=== PATIENT | male | born 1990 | race Caucasian/White ===

== ENCOUNTER 2017-03-01 13:03 | Emergency (ER) | payer BC, MEDICAID ==
[~2017-03-01] VITALS: Wt 78.0 kg
--- NOTE | 2017-03-01 16:19 | RADRPT ---
PROCEDURE: Left knee series. CLINICAL INDICATION: Left knee pain after trauma TECHNIQUE: Three views of the left knee. COMPARISON: None available FINDINGS: There is normal mineralization and alignment of the left knee. No acute fracture or dislocation is seen. There is a well corticated osseous fragment adjacent to the lateral tibial plateau likely rel ated to prior lateral collateral ligament injury. There is mild medial and lateral joint space narr owing. Tricompartmental osteophytes are present. There is a small suprapatellar joint effusion.. T he soft tissues are within normal limits. IMPRESSION: 1. No evidence of acute fracture or dislocation. 2. 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 Bi mmend correlation with prior injury. A small corticated osseous fragment adjacent to the lateral ti bial plateau suggestive of prior lateral collateral ligament injury or meniscal injury. 3. Small joint effusion. RPTAT: KK .Pranav Galvan MD, Date Time Electronically viewed and signed by .Pranav Galvan MD, MD on 03/01/2017 16:18 .B/
[2017-03-01] MEDS ORDERED: NAPR-260 PO (16:45)
--- NOTE | 2017-03-01 16:50 | ERD ---
ER Documentation Chief Complaint Date/Time DATE: 03/01/17 TIME: 16:47 Chief Complaint LEFT KNEE PAIN AND SWELLING FOR 2 WKS. NO DISTRESS. NO DEFORMITY HPI Patient is a 26-year-old male who presents to the ED with left knee pain 10 days. States that he was rockclimbing at school and felt pressure in his left knee. States that he is able to ambulate but feels that there is something wrong with the inside of his knee. He states that he has had a previous meniscectomy on the left knee in 2010. He states that it could possibly be a meniscus injury. He denies pain above or below his knee. He denies chest pain , cough, shortness of breath or difficulty breathing. He denies headache or dizziness. He has not used any medication for his symptoms. He denies fever or chills. No other complaints. ROS All systems reviewed and are negative except as per history of present illness. Medications Home Meds Active Scripts Naproxen* (Naprosyn*) 500 Mg Tablet, 500 MG PO BID Y for PAIN AND/OR INFLAMMATION, #30 TAB Prov:TASIA SIERRA PA-C 03/01/17 Allergies Allergies: Coded Allergies: No Known Allergy (Unverified , 03/01/17) PMhx/Soc Medical and Surgical Hx: pt denies Medical Hx, pt denies Surgical Hx History of Surgery: Yes (left knee) Anesthesia Reaction: No Hx Neurological Disorder: No Hx Respiratory Disorders: No Hx Cardiac Disorders: No Hx Psychiatric Problems: No Hx Miscellaneous Medical Probl: No Hx Alcohol Use: No Hx Substance Use: No Hx Tobacco Use: Yes Smoking Status: Current every day smoker FmHx Family History: No coronary disease, No diabetes, No other Physical Exam Vitals Vital Signs Date Time Temp Pulse Resp B/P Pulse Ox O2 Delivery O2 Flow Rate FiO2 03/01/17 13:05 98.0 74 20 147/84 98 Physical Exam GENERAL: Well-developed, well-nourished male. Appears in no acute distress. HEAD: Normocephalic, atraumatic. EYES: Pupils are equally reactive bilaterally. EOMs grossly intact. No conjunctival erythema. ENT: Moist mucous membranes. No uvula deviation. No kissing tonsils. No exudates. NECK: Supple. No lymphadenopathy or thyromegaly. No meningismus. negative kernig. negative brudinski. LUNG: Clear to auscultation bilaterally. No rhonchi, wheezing, rales or coarse breath sounds. HEART: Regular rate and rhythm. No murmurs, rubs or gallops. Extremities: Equal pulses bilaterally. No peripheral clubbing, cyanosis or edema. No unilateral leg swelling. No swelling or induration or warmth or erythema. Range of motion intact. Pain with extreme extension. Negative Lockman test. No pain above or below the knee. Negative Homans sign. No open wounds or laceration or deformities. NEUROLOGIC: Alert and oriented. Moving all four extremities. 5/5 strength in all extremities. Normal speech. Steady gait. SKIN: Normal color. Warm and dry. No rashes or lesions. Capillary refill < 2 seconds Procedures/MDM ER COURSE: I kept the patient and/or family informed of laboratory and diagnostic imaging results throughout the emergency room course. IMAGING STUDIES [place] [id number] Radiology Main Line: [phone] DIAGNOSTIC IMAGING REPORT Patient: KAILEY MAR : 1990 Age: 26 Sex: M MR #: [id number] DOS: 03/01/17 1538 Ordering MD: TASIA SIERRA PA-C Location: [facility] Room/Bed: PROCEDURE: Left knee series. CLINICAL INDICATION: Left knee pain after trauma TECHNIQUE: Three views of the left knee. COMPARISON: None available FINDINGS: There is normal mineralization and alignment of the left knee. No acute fracture or dislocation is seen. There is a well corticated osseous fragment adjacent to the lateral tibial plateau likely related to prior lateral collateral ligament injury. There is mild medial and lateral joint space narrowing. Tricompartmental osteophytes are present. There is a small suprapatellar joint effusion.. The soft tissues are within normal limits. IMPRESSION: 1. No evidence of acute fracture or dislocation. 2. 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 Recommend correlation with prior injury. A small corticated osseous fragment adjacent to the lateral tibial plateau suggestive of prior lateral collateral ligament injury or meniscal injury. 3. Small joint effusion. RPTAT: KK .Pranav Galvan MD, MD Date Time Electronically viewed and signed by .Pranav Galvan MD, MD on 2016 16:18 .B/ CC: TASIA SIERRA PA-C PROCEDURES Souleymane wrap. Neurovascularly intact post placement MEDICAL DECISION MAKING: This is a 26-year-old male who presents with left knee pain 10 days after a rockclimbing. Vital signs were reviewed. Patient is afebrile. Patient is not hypoxic. Patient is nontoxic or ill-appearing. Patient has knee pain of unknown etiology. His x-rays of by radiologist shows no fracture or dislocation but she has tricompartmental degenerative changes with small joint effusion. Low suspicion for dislocation, fracture, septic joint, compartment syndrome, osteomyelitis, avascular necrosis, DVT, Achilles tendon rupture, cellulitis. At this time, unable to rule out any tendon and ligament injuries. I did explain to patient that an MRI cannot be done here. Patient to follow-up with orthopedics for further imaging studies. DISCHARGE: At this time, patient is stable for discharge and outpatient management with no new complaints during the ER course. Patient was sent home with Souleymane shetty, CD of his x-ray and to follow-up with orthopedics this week.. Patient will be discharged home with instructions to recheck for new or worsening symptoms such as fever, nausea, weakness, LOC and to follow up with primary care in the next 1 -2 days. Patient was advised to return to the ER for any new or worsening symptoms. Plan was discussed and patient and/or family understands and agrees. Home instructions were given. Departure Diagnosis: Primary Impression: Knee pain Laterality: left Chronicity: acute Qualified Code: M25.562 - Acute pain of left knee Condition: Stable Patient Instructions: Knee Pain, Uncertain Cause Referrals: [facility] Hours: Mon-Fri 9:00 AM - 5:00 PM [facility] YOU HAVE RECEIVED A MEDICAL SCREENING EXAM AND THE RESULTS INDICATE THAT YOU DO NOT HAVE A CONDITION THAT REQUIRES URGENT TREATMENT IN THE EMERGENCY DEPARTMENT. FURTHER EVALUATION AND TREATMENT OF YOUR CONDITION CAN WAIT UNTIL YOU ARE SEEN IN YOUR DOCTORS OFFICE WITHIN THE NEXT 1-2 DAYS. IT IS YOUR RESPONSIBILITY TO MAKE AN APPOINTMENT FOR FOLOW-UP CARE. IF YOU HAVE A PRIMARY DOCTOR --you should call your primary doctor and schedule an appointment IF YOU DO NOT HAVE A PRIMARY DOCTOR YOU CAN CALL OUR PHYSICIAN REFERRAL HOTLINE AT IF YOU CAN NOT AFFORD TO SEE A PHYSICIAN YOU CAN CHOSE FROM THE FOLLOWING [facility] [address] [facility] [address] [employer] [facility] [address] [facility] [address] [facility] [address] [facility]. [facility]. [address] Additional Instructions: Call your primary care doctor TOMORROW for an appointment during the next 1-2 days.See the doctor sooner or return here if your condition worsens before your appointment time. TASIA SIERRA PA-C March 01, 2017 16:50
[2017-03-01 18:26] VITALS: BP 130/60; PULSE 59; RESP 18
== END 2017-03-01 18:28 | disposition home or self-care (01) ==
LOC: FTE 13:03
DX: M25.562 Pain in left knee (principal)
CPT/HCPCS: 73562